=== PATIENT | female | born 1940 | race Caucasian/White ===

== ENCOUNTER 2018-04-07 19:22 | Emergency (ER) | payer OTHER ==
[~2018-04-07] VITALS: Ht 152.4 cm; Wt 65.8 kg
[~2018-04-07 19:22] MED LIST: CRESTOR40 MG PO; DILTIAZEM 24HR240 MG PO; HYDROCHLOROTHIA25 MG PO; LANTUS 10100 UNITS/ SC; LANTUS 3 M100 UNITS1 SC; LOPRESSOR25 MG PO; Mag-Ox PO; NOVOLOG 10100 UNITS/ SC; XARELTO10 MG PO
[2018-04-07] MEDS ORDERED: AMARYL2 MG PO (20:19)
[2018-04-07] MEDS ORDERED: GLUCOPHAGE500 MG PO (20:20)
[2018-04-07] MEDS ORDERED: XARELTO15 MG PO (20:21)
[2018-04-07] MEDS ORDERED: TYLENOL REGULA325 MG PO (23:54)
[2018-04-08] VITALS: BP 134/69
== END 2018-04-08 00:34 | disposition home or self-care (01) ==
LOC: EME 19:22
DX: S42.001A Fracture of unspecified part of right clavicle, initial encounter for closed fracture (principal); W18.30XA Fall on same level, unspecified, initial encounter; Y93.89 Activity, other specified; E11.9 Type 2 diabetes mellitus without complications; E78.5 Hyperlipidemia, unspecified; Z86.73 Personal history of transient ischemic attack (TIA), and cerebral infarction without residual deficits; Z79.01 Long term (current) use of anticoagulants; Z79.4 Long term (current) use of insulin; Z85.43 Personal history of malignant neoplasm of ovary; Z90.710 Acquired absence of both cervix and uterus; Z92.3 Personal history of irradiation; Z91.041 Radiographic dye allergy status; Z88.2 Allergy status to sulfonamides
CPT/HCPCS: 70450; 71046; 72125; 73030; 99281; 99284